=== PATIENT | male | born 1940 | race Asian ===

== ENCOUNTER 2017-11-07 19:36 | Emergency (ER) | payer OTHER ==
[~2017-11-07] VITALS: Ht 165.1 cm; Wt 68.0 kg
[2017-11-07 19:46] VITALS: BP 141/91
[2017-11-07 20:43] LABS: BASOPHILS # (AUTO) 0.1 K/uL (0.00-0.22); EOSINOPHILS # (AUTO) 0.2 K/uL (0-0.4); EOSINOPHILS % (AUTO) 2.6 % (0.0-4.0); HEMATOCRIT 42.2 % (36-52); LYMPHOCYTES # (AUTO) 1.7 K/uL (2.0-11.5); LYMPHOCYTES % (AUTO) 28.5 % (20.5-51.1); MEAN CORPUSCULAR HEMOGLOBIN 30 pg (27-31); MEAN CORPUSCULAR HGB CONC 33 g/dL (33-37); MEAN CORPUSCULAR VOLUME 90.4 fL (80-94); MONOCYTES # (AUTO) 0.5 K/uL (0.8-1.0); MONOCYTES % (AUTO) 9.2 % (1.7-9.3); NEUTROPHILS # (AUTO) 3.5 K/uL (1.8-7.7); NEUTROPHILS % (AUTO) 58.7 % (42.2-75.2); PLATELET COUNT (AUTO) 212 K/uL (140-450); RED BLOOD CELL COUNT(AUTO) 4.67 MIL/uL (4.20-6.10); RED CELL DISTRIBUTION WIDTH 13.7 % (11.6-13.7)
[2017-11-07 21:02] LABS: ALBUMIN 4.2 g/dL (3.4-5.0); ANION GAP 9.7 (8-16); ASPARTATE AMINOTRANSFERASE 23 U/L (15-37); CARBON DIOXIDE 30.5 mmol/L (21-32); CHLORIDE 102 mmol/L (98-107); CHOL/HDL RATIO 2.3 (1-4.5); CREATININE 1.3 mg/dL (0.7-1.3); GLUCOSE 107 mg/dL (74-106); HDL CHOLESTEROL 74 mg/dL (40-60); LDL (CALC) 90 mg/dL (60-100); POTASSIUM 4.2 mmol/L (3.5-5.1); SODIUM SERUM 138 mmol/L (136-145); TOTAL BILIRUBIN 0.7 mg/dL (0.0-1.0); TRIGLYCERIDES 46 mg/dL (30-150); UREA NITROGEN, BLOOD 18 mg/dL (7-18)
[2017-11-07 21:38] VITALS: BP 132/79
== END 2017-11-07 21:36 | disposition home or self-care (01) ==
LOC: MED 19:36
DX: H66.90 Otitis media, unspecified, unspecified ear (principal); R42 Dizziness and giddiness; Z90.89 Acquired absence of other organs; Z88.8 Allergy status to other drugs, medicaments and biological substances
CPT/HCPCS: 36415; 71045; 80053; 80061; 85025; 93005; 99285; G0482; Q0092

== ENCOUNTER 2018-10-05 23:54 | Emergency (ER) | payer OTHER ==
[~2018-10-05] VITALS: Ht 170.2 cm; Wt 70.3 kg
[2018-10-06 00:04] VITALS: BP 152/89
--- NOTE | 2018-10-06 00:09 | NUR ---
PT AMBULATED TO BED 12. PROVIDED WITH URINE CUP.
[2018-10-06] MEDS ORDERED: MORPHINE SULFATE 4 MG/ML SYR IVP ONE ×2 (00:15→01:05)
[2018-10-06] MEDS ORDERED: NACL 0.9% 1,000 ML IV ONE (00:15)
[2018-10-06] MEDS ORDERED: KETOROLAC 30 MG/ML VIAL IVP ONE (01:20)
--- NOTE | 2018-10-06 01:53 | NUR ---
IV removed, catheter intact and site benign. Applied folded 4x4 gauze and tape to stop bleeding.
--- NOTE | 2018-10-06 01:54 | NUR ---
Patient discharged with v/s stable. Written and verbal after care instructions given and explained.Patient here with , who will be driving patient home. Patient alert, oriented and verbalized understanding of instructions. Ambulatory with steady gait. All questions addressed prior to discharge. ID band removed. Patient advised to follow up with PMD. Rx of [place], Motrin, flomax given. Patient educated on indication of medication including possible reaction and side effects. Opportunity to ask questions provided and answered.
[2018-10-06 01:55] VITALS: BP 132/79
== END 2018-10-06 01:54 | disposition home or self-care (01) ==
LOC: MED 23:54
DX: R10.9 Unspecified abdominal pain (principal); Z87.442 Personal history of urinary calculi; Z88.6 Allergy status to analgesic agent; Z90.49 Acquired absence of other specified parts of digestive tract
CPT/HCPCS: 81002; 96374; 96375; 96376; 99283; J1885; J2270; J7030

== ENCOUNTER 2021-03-20 11:55 | Emergency (ER) | payer OTHER ==
[~2021-03-20] VITALS: Ht 167.6 cm; Wt 68.9 kg
--- NOTE | 2021-03-20 12:15 | NUR ---
PT AMBULATED TO ER BED 2 FOR BEDSIDE TRIAGE.
[2021-03-20 12:18] VITALS: BP 160/90
--- NOTE | 2021-03-20 12:23 | NUR ---
80 Y/O MALE C/O COUGH X3DAYS. PT STATES RECENT TRAVEL TO [place] X1WEEK. DENIES FEVR/CHILLS, DENIES N/V/D. DENIES PAIN. DENIES SOB. DENIES CHEST PAIN. DENIES PMH ALLERGIES: YULIN
--- NOTE | 2021-03-20 12:59 | NUR ---
DR COELLO AT BEDSIDE EVALUATING PT
--- NOTE | 2021-03-20 13:26 | NUR ---
COLLECTED [facility]HTON, WALKED TO LAB.
[2021-03-20 13:27] VITALS: BP 160/90
--- NOTE | 2021-03-20 13:27 | NUR ---
Patient discharged with v/s stable. Written and verbal after care instructions given MEDICAL SCREENING EXAM and explained. Patient verbalized understanding. Ambulatory with steady gait. All questions addressed prior to discharge. Advised to follow up with PMD.
== END 2021-03-20 13:27 | disposition home or self-care (01) ==
LOC: MED 11:55
DX: B34.9 Viral infection, unspecified (principal); Z20.822 Contact with and (suspected) exposure to COVID-19; Z88.0 Allergy status to penicillin; Z98.890 Other specified postprocedural states
CPT/HCPCS: 99283; U0003

== ENCOUNTER 2021-04-17 17:01 | Emergency (ER) | payer OTHER ==
[~2021-04-17] VITALS: Ht 168.9 cm; Wt 68.6 kg
[2021-04-17 17:05] VITALS: BP 204/128
--- NOTE | 2021-04-17 17:24 | NUR ---
80 Y/O MALE BIB SPOUSE. PATIENT PRESENTS TO ED WITH C/O SOB AND RIGHT ABD APIN W/ DISTENSION. PT STATES FOR THE PAST 2 DAYS THE PAIN IN HIS ABD MAKES IT HARD TO BREATH. PT STATESHE IS "WORRIED HE WON'T WAKE UP IN THE MORNING." DENIES N/V/D; SKIN IS PINK/WARM/DRY; AAOX4 WITH EVEN AND STEADY GAIT; LUNGS CLEAR BL; HR EVEN AND REGULAR; PT DENIES ANY FEVER, CP, SOB, OR COUGH AT THIS TIME; PATIENT STATES PAIN OF 7/10 AT THIS TIME; VSS; PATIENT POSITIONED FOR COMFORT; HOB ELEVATED; BEDRAILS UP X1; BED DOWN. ER MD MADE AWARE OF PT STATUS. HX: HTN AND LIVER LESIONS NKDA MEDS: DENIES
--- NOTE | 2021-04-17 17:24 | NUR ---
ER/MD Dr. MILLER AT BEDSIDE
--- NOTE | 2021-04-17 17:55 | NUR ---
LABS AT BEDSIDE
[2021-04-17 18:08] LABS: BASOPHILS # (AUTO) 0.1 K/uL (0.00-0.22); BASOPHILS % (AUTO) 1.3 % (0.0-2.0); EOSINOPHILS # (AUTO) 0.1 K/uL (0-0.4); EOSINOPHILS % (AUTO) 1.7 % (0.0-4.0); HEMATOCRIT 43.5 % (36-52); HEMOGLOBIN 14.6 g/dL (12.0-18.0); LYMPHOCYTES # (AUTO) 1.5 K/uL (2.0-11.5); LYMPHOCYTES % (AUTO) 20.7 % (20.5-51.1); MEAN CORPUSCULAR HEMOGLOBIN 31 pg (27-31); MEAN CORPUSCULAR HGB CONC 34 g/dL (33-37); MEAN CORPUSCULAR VOLUME 92.2 fL (80-94); MONOCYTES # (AUTO) 0.6 K/uL (0.8-1.0); MONOCYTES % (AUTO) 7.8 % (1.7-9.3); NEUTROPHILS # (AUTO) 4.9 K/uL (1.8-7.7); NEUTROPHILS % (AUTO) 68.5 % (42.2-75.2); PLATELET COUNT (AUTO) 220 K/uL (140-450); RED BLOOD CELL COUNT(AUTO) 4.71 MIL/uL (4.20-6.10); RED CELL DISTRIBUTION WIDTH 14.4 % (11.6-13.7); WHITE BLOOD COUNT (AUTO) 7.1 K/uL (4.8-10.8)
--- NOTE | 2021-04-17 18:10 | NUR ---
RADIOLOGY AT BEDSIDE
[2021-04-17] MEDS: MORPHINE SULFATE 2 MG/ML SYR IVP ONE (18:17)
[2021-04-17 18:20] LABS: APPEARANCE,URINE CLEAR (CLEAR); BILIRUBIN,URINE NEGATIVE (NEGATIVE); BLOOD, URINE 3+ (NEGATIVE); COLOR,URINE YELLOW (YELLOW); LEUKOCYTE ESTERASE ,URINE NEGATIVE (NEGATIVE); NITRITE, URINE NEGATIVE (NEGATIVE); UGLUCOSE NEGATIVE (NEGATIVE)
[2021-04-17 18:33] LABS: WBC,URINE 0-5 /HPF (0-5)
[2021-04-17 18:51] LABS: ALBUMIN 4.3 g/dL (3.4-5.0); ASPARTATE AMINOTRANSFERASE 51 U/L (15-37); CARBON DIOXIDE 26.9 mmol/L (21-32); CREATININE 1.3 mg/dL (0.6-1.3); GLUCOSE 111 mg/dL (74-106); LIPASE 220 U/L (73-393); TOTAL BILIRUBIN 0.7 mg/dL (0.0-1.0); UREA NITROGEN, BLOOD 26 mg/dL (7-18)
[2021-04-17 19:06] LABS: ANION GAP 16.4 (8-16); CHLORIDE 101 mmol/L (98-107); POTASSIUM 4.3 mmol/L (3.5-5.1); SODIUM SERUM 140 mmol/L (136-145)
--- NOTE | 2021-04-17 19:19 | NUR ---
Pt report given to JACINTA NAJERA. Transfer of care at this time.
--- NOTE | 2021-04-17 19:30 | NUR ---
PT AWAKE AND ALERT, STATES HE STILL HAS SOME PAIN BUT IS OK. ALL NEEDS MET AT THIS TIME.
[2021-04-17] MEDS ORDERED: HYDR-4922 PO (21:07)
[2021-04-17] MEDS ORDERED: ACET-8386 PO ×2 (21:08→21:09)
[2021-04-17 21:18] VITALS: BP 154/91
== END 2021-04-17 21:18 | disposition home or self-care (01) ==
LOC: MED 17:01
DX: N20.0 Calculus of kidney (principal); K76.89 Other specified diseases of liver; I10 Essential (primary) hypertension; Z79.899 Other long term (current) drug therapy; Z88.0 Allergy status to penicillin
CPT/HCPCS: 36415; 71045; 74177; 80053; 81001; 83690; 83735; 84100; 84484; 85025; 93005; 96374; 99285; J2270; Q0092; Q9967

== ENCOUNTER 2023-02-04 20:26 | Emergency (ER) | payer OTHER ==
[~2023-02-04] VITALS: Ht 167.6 cm; Wt 66.2 kg
[~2023-02-04 20:26] MED LIST: ACET-8905 PO
[2023-02-04 20:28] VITALS: BP 150/90; PULSE 92; RESP 17; TEMP 97.8; O2SAT 99
[2023-02-04 21:43] LABS: BASOPHILS # (AUTO) 0.1 K/uL (0.00-0.22); BASOPHILS % (AUTO) 0.5 % (0.0-2.0); EOSINOPHILS # (AUTO) 0.1 K/uL (0-0.4); EOSINOPHILS % (AUTO) 0.8 % (0.0-4.0); HEMOGLOBIN 12.8 g/dL (12.0-18.0); LYMPHOCYTES # (AUTO) 0.9 K/uL (2.0-11.5); LYMPHOCYTES % (AUTO) 9.4 % (20.5-51.1); MEAN CORPUSCULAR HEMOGLOBIN 30 pg (27-31); MEAN CORPUSCULAR HGB CONC 34 g/dL (33-37); MEAN CORPUSCULAR VOLUME 90.2 fL (80-94); MONOCYTES # (AUTO) 0.8 K/uL (0.8-1.0); MONOCYTES % (AUTO) 8.3 % (1.7-9.3); NEUTROPHILS # (AUTO) 7.9 K/uL (1.8-7.7); PLATELET COUNT (AUTO) 215 K/uL (140-450); RED BLOOD CELL COUNT(AUTO) 4.21 MIL/uL (4.20-6.10); RED CELL DISTRIBUTION WIDTH 13.8 % (11.6-13.7); WHITE BLOOD COUNT (AUTO) 9.8 K/uL (4.8-10.8)
[2023-02-04 22:04] LABS: AMPHETAMINE, URINE NEGATIVE ng/ml (NEG <=1000); BARBITURATE, URINE NEGATIVE ng/ml (NEG <=200); BENZODIAZEPINE, URINE NEGATIVE ng/mL (NEG <=200); CANNABINOID, URINE NEGATIVE ng/mL (NEG <=50); COCAINE, URINE NEGATIVE ng/mL (NEG <=300); OPIATE, URINE NEGATIVE ng/mL (NEG <=2000); PHENCYCLIDINE SCREEN,URINE NEGATIVE ng/mL (NEG <=25)
[2023-02-04 22:06] LABS: ALANINE AMINOTRANSFERASE 23 U/L (12-78); ALBUMIN 3.6 g/dL (3.4-5.0); ALKALINE PHOSPHATASE 105 U/L (50-136); ANION GAP 10.9 (8-16); ASPARTATE AMINOTRANSFERASE 27 U/L (15-37); CALCIUM 9.2 mg/dL (8.5-10.1); CARBON DIOXIDE 28.8 mmol/L (21-32); CHLORIDE 98 mmol/L (98-107); CREATININE 1.3 mg/dL (0.6-1.3); GLUCOSE 166 mg/dL (74-106); MAGNESIUM 1.8 mg/dL (1.8-2.4); PHOSPHORUS 2.6 mg/dL (2.5-4.9); POTASSIUM 3.7 mmol/L (3.5-5.1); SODIUM SERUM 134 mmol/L (136-145); TOTAL BILIRUBIN 0.5 mg/dL (0.0-1.0); UREA NITROGEN, BLOOD 21 mg/dL (7-18)
[2023-02-04 22:06] LABS: APPEARANCE,URINE CLEAR (CLEAR)
[2023-02-04 22:07] LABS: BILIRUBIN,URINE NEGATIVE (NEGATIVE); BLOOD, URINE 2+ (NEGATIVE); COLOR,URINE STRAW (YELLOW); LEUKOCYTE ESTERASE ,URINE NEGATIVE (NEGATIVE); NITRITE, URINE NEGATIVE (NEGATIVE); PH,URINE 6.5 (5.0-9.0); PROTEIN,URINE NEGATIVE (NEGATIVE); RBC,URINE 11-20 (MOD) /HPF (0-5); SQUAMOUS EPITHELIAL CELL,UR None Seen /LPF (0-3 (FEW)); UGLUCOSE NEGATIVE (NEGATIVE); UROBILINOGEN,URINE 0.2 EU/dL (0.2 - 1); WBC,URINE NONE SEEN /HPF (0-5)
[2023-02-04 22:08] LABS: BACTERIA,URINE None Seen /HPF (None Seen)
[2023-02-05] MEDS ORDERED: LIDOCAINE 5% 1 EA PATCH TP ONE (02:05)
[2023-02-05] MEDS ORDERED: IBUP-2213 PO (02:06)
[2023-02-05] MEDS ORDERED: LID5T TP (02:06)
[2023-02-05 02:30] VITALS: BP 126/68; PULSE 75; RESP 17; TEMP 97.8; O2SAT 99
== END 2023-02-05 02:30 | disposition home or self-care (01) ==
LOC: MED 20:26
DX: N20.0 Calculus of kidney (principal); R10.12 Left upper quadrant pain; R07.89 Other chest pain; I10 Essential (primary) hypertension; Z88.0 Allergy status to penicillin; Z79.899 Other long term (current) drug therapy
CPT/HCPCS: 36415; 71045; 80053; 80305; 81001; 83690; 83735; 84100; 84443; 84484; 85025; 99285